=== PATIENT | female | born 1945 | race Two or more races ===

== ENCOUNTER 2017-09-30 16:57 | Inpatient (IN) | payer MEDICARE ==
[~2017-09-30] VITALS: Ht 142.2 cm; Wt 73.1 kg
[~2017-09-30 16:57] MED LIST: ALPR-623 PO; AMLO5TAB PO; ASPI-1071 PO; ESTR0.5T PO; GLIM4TAB79 PO; HYDR-569 PO; METF500T PO; METO5TAB98 PO; ONDA4TAB6 PO; SIMV20TA5 PO; TOPI25TA15 PO; TRAM50TA2 PO
[2017-09-30 17:35] LABS: BASOPHILS % (AUTO) 0.3 % (0-1); EOSINOPHILS # (AUTO) 0.5 X10'3 (0-0.9); EOSINOPHILS % (AUTO) 5.7 % (0-6); HEMATOCRIT 35.5 % (35.0-45.0); HEMOGLOBIN 12.6 g/dl (12.0-16.0); LYMPHOCYTES % (AUTO) 22.5 % (21-51); MEAN CORPUSCULAR HEMOGLOBIN 32.2 PG (27.0-31.0); MEAN CORPUSCULAR HGB CONC 35.6 % (33.0-36.5); MEAN CORPUSCULAR VOLUME 90.5 FL (78-98); MEAN PLATELET VOLUME 6.9 FL (7.4-10.4); MONOCYTES # (AUTO) 0.7 X10'3 (0-0.9); MONOCYTES % (AUTO) 7.7 % (2-12); NEUTROPHILS # (AUTO) 5.7 X10'3 (1.8-7.7); NEUTROPHILS % (AUTO) 63.8 % (42-75); PLATELET COUNT 242 X10'3 (140-440); RED BLOOD COUNT 3.93 X10'6 (4.20-5.60); RED CELL DISTRIBUTION WIDTH 13.3 % (11.5-14.5); WHITE BLOOD COUNT 8.9 X10'3 (4.5-11.0)
[2017-09-30 17:45] LABS: INR 0.9 INR; PARTIAL THROMBOPLASTIN TIME 25 SECONDS (22-32); PROTHROMBIN TIME 9.8 SECONDS (9.0-12.0)
[2017-09-30 17:50] LABS: ALANINE AMINOTRANSFERASE 24 U/L (12-78); ALBUMIN 3.5 G/DL (3.4-5.0); ALBUMIN/GLOBULIN RATIO 0.9 (1.1-1.5); ALKALINE PHOSPHATASE 81 IU/L (46-116); ANION GAP 11 (8-16); ASPARTATE AMINO TRANSFERASE 14 U/L (10-37); BILIRUBIN,TOTAL 0.3 MG/DL (0.1-1.0); BLOOD UREA NITROGEN 13 MG/DL (7-18); BUN/CREATININE RATIO 9.6 (6.6-38.0); CALCIUM 9.1 MG/DL (8.5-10.1); CHLORIDE 102 MMOL/L (99-107); CREATININE 1.35 MG/DL (0.40-0.90); GLUCOSE 127 MG/DL (70-104); POTASSIUM 3.3 MMOL/L (3.5-5.1); SODIUM 140 MMOL/L (135-145); TOTAL CARBON DIOXIDE 27.3 MMOL/L (24-32); TOTAL PROTEIN 7.5 G/DL (6.4-8.2); eGFR 39 ML/MIN
[2017-09-30] MEDS ORDERED: aspirin 81mg tab.chew PO ONE (20:25)
[2017-09-30] MEDS ORDERED: CALC0.253 PO (20:47)
[2017-09-30] MEDS ORDERED: PROM25TA14 PO (20:47)
[2017-09-30] MEDS ORDERED: FERR325T32 PO (20:47)
[2017-09-30] MEDS ORDERED: BETA1TAB18 PO (20:47)
[2017-09-30] MEDS ORDERED: TRIA1CAP6 PO (20:47)
[2017-09-30] MEDS ORDERED: CYAN-19 PO (20:47)
[2017-09-30] MEDS ORDERED: BIOT5CAP2 PO (20:47)
[2017-09-30] MEDS ORDERED: GEMF600T3 PO (20:47)
[2017-09-30] MEDS ORDERED: ALPR-623 PO (20:50)
[2017-09-30] MEDS ORDERED: ESTR0.5T PO (20:50)
[2017-09-30] MEDS ORDERED: nitroGLYCERIN 0.4mg SUBLingual tab SL PRN ×2 (21:00→21:15)
[2017-09-30] MEDS ORDERED: potassium Cl 20 mEq SR tablet PO ONE (21:00)
[2017-09-30] MEDS ORDERED: glucagon, human recombinant 1mg kit SUBCUT PRN (21:15)
[2017-09-30] MEDS ORDERED: mag hydrox/Alum hydrox/simeth 30ml oral suspension PO PRN (21:15)
[2017-09-30] MEDS ORDERED: CAFFEINE CITRATE 60 MG/3 ML injection vial IV PRN (21:15)
[2017-09-30] MEDS ORDERED: MESSAGE TO PHARMACY PO ONE (21:15)
[2017-09-30] MEDS ORDERED: acetaminophen 325mg tablet PO PRN (21:15)
[2017-09-30] MEDS ORDERED: metoprolol tartrate 1mg/ml inj IV PRN (21:15)
[2017-09-30] MEDS ORDERED: regadenoson 0.4mg/5ml syringe IV ONE (21:15)
[2017-09-30] MEDS ORDERED: ondansetron/PF 4mg/2ml inj IV PRN (21:15)
[2017-09-30] MEDS ORDERED: morphine 4 MG/ML inj SYRINge IV PRN ×2 (21:15)
[2017-09-30] MEDS ORDERED: magnesium hydroxide 30ml (MOM) UD suspension PO PRN (21:15)
[2017-09-30] MEDS ORDERED: dextrose ORAL solution 15 GM/59 ML bottle PO PRN ×2 (21:15)
[2017-09-30] MEDS ORDERED: insulin Lispro (HumaLOG) vial - multi-dose SQ SCH (21:15)
[2017-09-30] MEDS ORDERED: dextrose 50%-water 50ml dispensing syringe IV PRN ×2 (21:15)
[2017-09-30] MEDS ORDERED: ALPRAZolam 0.25mg tablet PO PRN (22:15)
[2017-09-30 23:00] VITALS: BP 132/68
[2017-10-01 03:00] VITALS: BP 142/60
[2017-10-01 06:08] LABS: BASOPHILS % (AUTO) 0.2 % (0-1); EOSINOPHILS # (AUTO) 0.5 X10'3 (0-0.9); HEMATOCRIT 33.8 % (35.0-45.0); HEMOGLOBIN 11.6 g/dl (12.0-16.0); LYMPHOCYTES # (AUTO) 1.9 X10'3 (1.1-4.8); LYMPHOCYTES % (AUTO) 19.5 % (21-51); MEAN CORPUSCULAR HEMOGLOBIN 31.4 PG (27.0-31.0); MEAN CORPUSCULAR HGB CONC 34.4 % (33.0-36.5); MEAN CORPUSCULAR VOLUME 91.4 FL (78-98); MEAN PLATELET VOLUME 7.6 FL (7.4-10.4); MONOCYTES # (AUTO) 0.7 X10'3 (0-0.9); MONOCYTES % (AUTO) 7.7 % (2-12); NEUTROPHILS # (AUTO) 6.4 X10'3 (1.8-7.7); NEUTROPHILS % (AUTO) 67.6 % (42-75); PLATELET COUNT 197 X10'3 (140-440); RED CELL DISTRIBUTION WIDTH 13.2 % (11.5-14.5); WHITE BLOOD COUNT 9.5 X10'3 (4.5-11.0)
[2017-10-01 06:17] LABS: ALBUMIN 2.9 G/DL (3.4-5.0); ANION GAP 8 (8-16); BLOOD UREA NITROGEN 16 MG/DL (7-18); BUN/CREATININE RATIO 13.1 (6.6-38.0); CALCIUM 9.2 MG/DL (8.5-10.1); CHLORIDE 104 MMOL/L (99-107); CREATININE 1.22 MG/DL (0.40-0.90); GLUCOSE 140 MG/DL (70-104); POTASSIUM 4.1 MMOL/L (3.5-5.1); SODIUM 141 MMOL/L (135-145); TOTAL CARBON DIOXIDE 28.7 MMOL/L (24-32); eGFR 43 ML/MIN
[2017-10-01 06:30] VITALS: BP 138/64
[2017-10-01] MEDS: aspirin 325mg tablet PO SCH (08:58)
[2017-10-01] MEDS: calcitriol 0.25mcg capsule PO SCH (09:01)
[2017-10-01] MEDS: topiramate 25mg tablet PO SCH (09:01)
[2017-10-01] MEDS: atorvastatin 10mg tablet PO SCH (09:03)
[2017-10-01] MEDS: amLODIPine 5mg tablet PO SCH (09:03)
[2017-10-01] MEDS: gemfibrozil 600mg tablet PO SCH ×2 (09:03→19:38)
[2017-10-01] MEDS: ferrous sulfate 325mg tablet PO SCH (09:03)
[2017-10-01] MEDS: cyanocobalamin 500mcg tablet PO SCH (09:07)
[2017-10-01 11:00] VITALS: BP 120/63
[2017-10-01 15:00] VITALS: BP 139/68
[2017-10-01 19:00] VITALS: BP 153/64
[2017-10-01] MEDS: insulin glargine (Lantus) pen - multi-dose SQ SCH (21:00)
[2017-10-01 23:00] VITALS: BP 103/74
[2017-10-02] VITALS (23 sets, daily range): BP systolic 113–156; BP diastolic 59–81
[2017-10-02 05:09] LABS: BASOPHILS % (AUTO) 0.4 % (0-1); EOSINOPHILS # (AUTO) 0.5 X10'3 (0-0.9); EOSINOPHILS % (AUTO) 5.8 % (0-6); HEMOGLOBIN 11.6 g/dl (12.0-16.0); LYMPHOCYTES # (AUTO) 1.7 X10'3 (1.1-4.8); LYMPHOCYTES % (AUTO) 20.6 % (21-51); MEAN CORPUSCULAR HEMOGLOBIN 31.6 PG (27.0-31.0); MEAN CORPUSCULAR HGB CONC 35.2 % (33.0-36.5); MEAN CORPUSCULAR VOLUME 89.8 FL (78-98); MEAN PLATELET VOLUME 7.5 FL (7.4-10.4); MONOCYTES # (AUTO) 0.7 X10'3 (0-0.9); MONOCYTES % (AUTO) 8.1 % (2-12); NEUTROPHILS # (AUTO) 5.5 X10'3 (1.8-7.7); NEUTROPHILS % (AUTO) 65.1 % (42-75); PLATELET COUNT 196 X10'3 (140-440); RED BLOOD COUNT 3.67 X10'6 (4.20-5.60); RED CELL DISTRIBUTION WIDTH 13.1 % (11.5-14.5); WHITE BLOOD COUNT 8.4 X10'3 (4.5-11.0)
[2017-10-02 05:42] LABS: ALBUMIN 2.9 G/DL (3.4-5.0); ANION GAP 9 (8-16); BLOOD UREA NITROGEN 20 MG/DL (7-18); BUN/CREATININE RATIO 18.5 (6.6-38.0); CALCIUM 9.2 MG/DL (8.5-10.1); CHLORIDE 104 MMOL/L (99-107); CHOL/HDL RATIO 3.8 (0.00-4.99); CHOLESTEROL 150 MG/DL (0-200); CREATININE 1.08 MG/DL (0.40-0.90); GLUCOSE 151 MG/DL (70-104); HDL CHOLESTEROL 40 MG/DL (35-60); POTASSIUM 3.8 MMOL/L (3.5-5.1); SODIUM 140 MMOL/L (135-145); TOTAL CARBON DIOXIDE 26.8 MMOL/L (24-32); TRIGLYCERIDES 379 MG/DL (20-135); eGFR 50 ML/MIN
[2017-10-02 05:54] LABS: LDL CHOLESTEROL 74 MG/DL (50-100)
[2017-10-02] MEDS: calcitriol 0.25mcg capsule PO SCH (07:24)
[2017-10-02] MEDS: cyanocobalamin 500mcg tablet PO SCH (07:25)
[2017-10-02] MEDS: atorvastatin 10mg tablet PO SCH (07:25)
[2017-10-02] MEDS: topiramate 25mg tablet PO SCH (07:25)
[2017-10-02] MEDS: ferrous sulfate 325mg tablet PO SCH (07:26)
[2017-10-02] MEDS: gemfibrozil 600mg tablet PO SCH ×2 (07:26→19:07)
[2017-10-02] MEDS: aspirin 325mg tablet PO SCH (07:28)
[2017-10-02] MEDS: amLODIPine 5mg tablet PO SCH (07:28)
[2017-10-02] MEDS ORDERED: regadenoson 0.4mg/5ml syringe IV ONE ×2 (09:50→10:27)
[2017-10-02] MEDS ORDERED: CAFFEINE CITRATE 60 MG/3 ML injection vial IV ONE (10:27)
[2017-10-02] MEDS: normal saline 1000ml 1,000 ML IV SCH ×2 (15:32→20:20)
[2017-10-02] MEDS ORDERED: midazolam 2 mg/2 ml injection ONE (16:30)
[2017-10-02] MEDS ORDERED: iohexol 350 MG/ML 50ML vial IV ONE (16:31)
[2017-10-02] MEDS ORDERED: iohexol 350MG/ML 100ml bottle IV ONE (16:31)
[2017-10-02] MEDS ORDERED: fentaNYL/PF 50MCG/1 ML 2ML syringe ONE (16:31)
[2017-10-02] MEDS ORDERED: LIDOcaine 1% 30ml preserv. free vial ONE (16:32)
[2017-10-02] MEDS ORDERED: nitroGLYCERIN-Tridil 50MG/D5W 250 ML IV ONE (17:08)
[2017-10-02] MEDS ORDERED: nitroGLYCERIN 0.4mg SUBLingual tab SL PRN (17:40)
[2017-10-02] MEDS ORDERED: HYDROcodone/acetaminophen 5mg/325mg tablet PO PRN (17:40)
[2017-10-02] MEDS ORDERED: normal saline 1000ml 1,000 ML IV ONE (17:40)
[2017-10-02] MEDS ORDERED: proCHLORperazine 10 MG/2 ml inj IV PRN (17:40)
[2017-10-02] MEDS ORDERED: HYDROcodone/acetaminophen 10/325mg tab PO PRN (17:40)
[2017-10-02] MEDS ORDERED: ondansetron/PF 4mg/2ml inj IV PRN (17:40)
[2017-10-02] MEDS ORDERED: OXAZEpam 15mg capsule PO PRN (17:40)
[2017-10-02] MEDS: acetaminophen 325mg tablet PO PRN (19:06)
[2017-10-02] MEDS: insulin glargine (Lantus) pen - multi-dose SQ SCH (21:00)
[2017-10-03] MEDS: normal saline 1000ml 1,000 ML IV SCH ×2 (01:20→06:20)
[2017-10-03] MEDS: acetaminophen 325mg tablet PO PRN ×3 (01:21→15:30)
[2017-10-03 03:00] VITALS: BP 122/63
[2017-10-03 04:50] LABS: BASOPHILS % (AUTO) 0.2 % (0-1); EOSINOPHILS # (AUTO) 0.4 X10'3 (0-0.9); EOSINOPHILS % (AUTO) 4.5 % (0-6); HEMATOCRIT 34.6 % (35.0-45.0); LYMPHOCYTES # (AUTO) 1.8 X10'3 (1.1-4.8); LYMPHOCYTES % (AUTO) 21.2 % (21-51); MEAN CORPUSCULAR HEMOGLOBIN 31.7 PG (27.0-31.0); MEAN CORPUSCULAR HGB CONC 34.6 % (33.0-36.5); MEAN CORPUSCULAR VOLUME 91.6 FL (78-98); MEAN PLATELET VOLUME 7.2 FL (7.4-10.4); MONOCYTES # (AUTO) 0.7 X10'3 (0-0.9); MONOCYTES % (AUTO) 7.8 % (2-12); NEUTROPHILS # (AUTO) 5.6 X10'3 (1.8-7.7); NEUTROPHILS % (AUTO) 66.3 % (42-75); PLATELET COUNT 218 X10'3 (140-440); RED BLOOD COUNT 3.78 X10'6 (4.20-5.60); RED CELL DISTRIBUTION WIDTH 13.4 % (11.5-14.5); WHITE BLOOD COUNT 8.4 X10'3 (4.5-11.0)
[2017-10-03 05:04] LABS: ALBUMIN 3.1 G/DL (3.4-5.0); ANION GAP 9 (8-16); BLOOD UREA NITROGEN 19 MG/DL (7-18); BUN/CREATININE RATIO 17.8 (6.6-38.0); CALCIUM 9.1 MG/DL (8.5-10.1); CHLORIDE 106 MMOL/L (99-107); CREATININE 1.07 MG/DL (0.40-0.90); GLUCOSE 133 MG/DL (70-104); POTASSIUM 3.9 MMOL/L (3.5-5.1); SODIUM 140 MMOL/L (135-145); TOTAL CARBON DIOXIDE 25.2 MMOL/L (24-32); eGFR 50 ML/MIN
[2017-10-03 06:58] VITALS: BP 148/68
[2017-10-03] MEDS: calcitriol 0.25mcg capsule PO SCH (07:16)
[2017-10-03] MEDS: ferrous sulfate 325mg tablet PO SCH (07:17)
[2017-10-03] MEDS: gemfibrozil 600mg tablet PO SCH (07:17)
[2017-10-03] MEDS: cyanocobalamin 500mcg tablet PO SCH (07:20)
[2017-10-03] MEDS: aspirin 325mg tablet PO SCH (07:20)
[2017-10-03] MEDS: atorvastatin 10mg tablet PO SCH (07:20)
[2017-10-03] MEDS: topiramate 25mg tablet PO SCH (07:21)
[2017-10-03] MEDS: amLODIPine 5mg tablet PO SCH (07:21)
[2017-10-03 11:00] VITALS: BP 145/78
[2017-10-03] MEDS ORDERED: PANT40TA4 PO (14:56)
[2017-10-03 15:00] VITALS: BP 150/72
== END 2017-10-03 15:50 | disposition home or self-care (01) | DRG 392 ==
LOC: ER 16:58 → ED HOLD 21:11 → EDBEDREQ 22:20 → PCU 3S 23:01
PROVIDERS: ADMIT Internal Medicine; ATTEND Family Medicine
PROC: 4A023N7 Measurement of Cardiac Sampling and Pressure, Left Heart, Percutaneous Approach (ICD-10-PCS; principal; 2017-10-02)
PROC: B2111ZZ Fluoroscopy of Multiple Coronary Arteries using Low Osmolar Contrast (ICD-10-PCS; 2017-10-02)
PROC: B2151ZZ Fluoroscopy of Left Heart using Low Osmolar Contrast (ICD-10-PCS; 2017-10-02)
PROC: 4A02XM4 Measurement of Cardiac Total Activity, External Approach (ICD-10-PCS; 2017-10-02)
PROC: 3E033HZ Introduction of Radioactive Substance into Peripheral Vein, Percutaneous Approach (ICD-10-PCS; 2017-10-02)
DX: K21.9 Gastro-esophageal reflux disease without esophagitis (principal); N17.9 Acute kidney failure, unspecified; E78.5 Hyperlipidemia, unspecified; E78.1 Pure hyperglyceridemia; I25.10 Atherosclerotic heart disease of native coronary artery without angina pectoris; E11.9 Type 2 diabetes mellitus without complications; I10 Essential (primary) hypertension; F41.1 Generalized anxiety disorder; E87.6 Hypokalemia; M79.601 Pain in right arm; M79.602 Pain in left arm; R51 Headache; I25.2 Old myocardial infarction; Z79.82 Long term (current) use of aspirin; Z79.899 Other long term (current) drug therapy; Z79.84 Long term (current) use of oral hypoglycemic drugs
CPT/HCPCS: 36415; 71045; 78452; 80048; 80053; 80061; 82948; 84443; 84484; 85025; 85610; 85730; 87070; 93005; 93017; 93458; 99152; 99285; A4620; A6257; A9500; C1760; C1769; J1644; J1815; J2250; J2405; J3010; J3490; J7030; Q9967

== ENCOUNTER 2021-03-19 22:04 | Emergency (ER) | payer BC, MEDICARE ==
[~2021-03-19] VITALS: Ht 137.2 cm; Wt 66.4 kg
[~2021-03-19 22:04] MED LIST changes: -ASPI-1071 PO; +BETA1TAB18 PO; +BIOT5CAP2 PO; +CALC0.253 PO; +CYAN-51 PO; +FERR325T32 PO; +GEMF600T89 PO; +GLIM4TAB7 PO; -GLIM4TAB79 PO; -HYDR-569 PO; -METO5TAB98 PO; -ONDA4TAB6 PO; +PANT40TA54 PO; +PROM25TA14 PO; +SIMV-42 PO; -SIMV20TA5 PO; -TRAM50TA2 PO; +TRIA1CAP6 PO
[2021-03-20 02:22] LABS: BASOPHILS % (AUTO) 0.4 % (0-1); EOSINOPHILS # (AUTO) 0.3 X10'3 (0-0.9); HEMATOCRIT 37.6 % (35.0-45.0); HEMOGLOBIN 13.2 g/dl (12.0-16.0); LYMPHOCYTES # (AUTO) 2.1 X10'3 (1.1-4.8); LYMPHOCYTES % (AUTO) 24.9 % (21-51); MEAN CORPUSCULAR HEMOGLOBIN 31.5 PG (27.0-31.0); MEAN CORPUSCULAR HGB CONC 35.2 g/dL (33.0-36.5); MEAN CORPUSCULAR VOLUME 89.5 FL (78-98); MEAN PLATELET VOLUME 6.9 FL (7.4-10.4); MONOCYTES # (AUTO) 0.8 X10'3 (0-0.9); MONOCYTES % (AUTO) 9.7 % (2-12); NEUTROPHILS # (AUTO) 5.1 X10'3 (1.8-7.7); PLATELET COUNT 194 X10'3 (140-440); RED BLOOD COUNT 4.21 X10'6 (4.20-5.60); RED CELL DISTRIBUTION WIDTH 13.2 % (11.5-14.5); WHITE BLOOD COUNT 8.3 X10'3 (4.5-11.0)
[2021-03-20 02:35] LABS: ALANINE AMINOTRANSFERASE 23 U/L (12-78); ALBUMIN 3.7 G/DL (3.4-5.0); ALBUMIN/GLOBULIN RATIO 0.9 (1.1-1.5); ALKALINE PHOSPHATASE 108 IU/L (46-116); ANION GAP 9 (8-16); ASPARTATE AMINO TRANSFERASE 18 U/L (10-37); BILIRUBIN,TOTAL 0.5 MG/DL (0.1-1.0); BLOOD UREA NITROGEN 19 MG/DL (7-18); BUN/CREATININE RATIO 17.6 (6.6-38.0); CALCIUM 9.6 MG/DL (8.5-10.1); CHLORIDE 100 MMOL/L (99-107); CREATININE 1.08 MG/DL (0.40-0.90); GLUCOSE 128 MG/DL (70-104); POTASSIUM 3.5 MMOL/L (3.5-5.1); SODIUM 140 MMOL/L (135-145); TOTAL CARBON DIOXIDE 30.8 MMOL/L (24-32); TOTAL PROTEIN 7.9 G/DL (6.4-8.2); eGFR 49 ML/MIN
[2021-03-20 03:16] VITALS: BP 147/73
== END 2021-03-20 03:19 | disposition home or self-care (01) ==
LOC: ER 22:05
DX: M25.512 Pain in left shoulder (principal); R51.9 Headache, unspecified; M79.602 Pain in left arm; I10 Essential (primary) hypertension; I25.2 Old myocardial infarction; E11.9 Type 2 diabetes mellitus without complications; Z79.899 Other long term (current) drug therapy
CPT/HCPCS: 36415; 71045; 73030; 80053; 83880; 84484; 85025; 93005; 99285